=== PATIENT | female | born 1950 | race Caucasian/White ===

== ENCOUNTER 2016-06-25 09:01 | Outpatient (CLI) | payer MEDICARE, OTHER ==
[2016-06-25 12:23] LABS: #Eosinphils 0.2 thou/uL (0.0-0.7); #Monocytes 0.5 thou/uL (0.11-0.59); #Neutrophils 3.2 thou/uL (1.40-6.50); %Basophils 0.6 % (0.0-1.0); %Eosinophils 3.2 % (0.0-10.0); %Lymphocytes 34.1 % (21.0-51.0); %Monocytes 8.1 % (0.0-10.0); Hematocrit 44.9 % (36.0-47.0); Mean Platelet Volume 10.4 fL (7.4-10.4); Red Blood Cell (RBC) Count 4.96 mill/uL (4.20-5.40); White Blood Cell (WBC) Count 5.9 thou/uL (4.8-10.8)
[2016-06-25 12:52] LABS: ALT (SGPT) 14 U/L (0-55); AST (SGOT) 24 U/L (5-34); Alkaline Phosphatase 76 U/L (40-150); Anion Gap 16 mmol/L (10-20); BUN (Urea Nitrogen) 22 mg/dL (9.8-20.1); Bilirubin, Direct 0.2 mg/dL (0.1-0.3); Bilirubin, Total 0.7 mg/dL (0.2-1.2); Calc. Creatinine Clearance 0 mL/min (70-130); Calcium 9.6 mg/dL (7.8-10.44); Carbon Dioxide 26 mmol/L (23-31); Chloride 101 mmol/L (98-107); Estimated GFR-MDRD 61; LDL Cholesterol, Calculated 117 mg/dL; Protein, Total 7.6 g/dL (5.8-8.1)
[2016-06-25 12:55] LABS: Hemoglobin A1c 5.8 % (4.0-6.0)
== END 2016-06-25 09:02 ==
LOC: NAVSJIPCSP 09:01 → EDSTATUS 15:23
PROVIDERS: ATTEND Family Medicine
DX: E78.5 Hyperlipidemia, unspecified (principal); I10 Essential (primary) hypertension; Z79.899 Other long term (current) drug therapy
CPT/HCPCS: 36415; 80048; 80061; 80076; 83036; 84443; 85025

== ENCOUNTER 2018-09-17 04:21 | Emergency (ER) | payer MEDICARE, OTHER | END 2018-09-17 05:00 | disposition home or self-care (01) | LOC: NAV ERS 04:21 | DX: T78.40XA Allergy, unspecified, initial encounter (principal); E78.5 Hyperlipidemia, unspecified; Z79.899 Other long term (current) drug therapy | CPT/HCPCS: 99282 ==

== ENCOUNTER 2020-10-07 10:08 | Emergency (ER) | payer MEDICARE, OTHER | END 2020-10-07 11:27 | disposition home or self-care (01) | LOC: NAV ERS 10:08 | DX: J45.909 Unspecified asthma, uncomplicated (principal); J32.9 Chronic sinusitis, unspecified; E78.5 Hyperlipidemia, unspecified; I10 Essential (primary) hypertension; Z79.899 Other long term (current) drug therapy | CPT/HCPCS: 71046 ==

== ENCOUNTER 2021-10-13 16:49 | Emergency (ER) | payer MEDICARE, OTHER | END 2021-10-13 17:45 | disposition home or self-care (01) | LOC: NAV ERS 16:49 | DX: S00.06XA Insect bite (nonvenomous) of scalp, initial encounter (principal); R59.0 Localized enlarged lymph nodes; J06.9 Acute upper respiratory infection, unspecified; I10 Essential (primary) hypertension; Z79.899 Other long term (current) drug therapy; W57.XXXA Bitten or stung by nonvenomous insect and other nonvenomous arthropods, initial encounter | CPT/HCPCS: 99283 ==

== ENCOUNTER 2021-10-16 02:51 | Emergency (ER) | payer MEDICARE, OTHER ==
[2021-10-16] MEDS ORDERED: predniSONE 20 MG TAB ONE (03:29)
== END 2021-10-16 03:35 | disposition home or self-care (01) ==
LOC: NAV ERS 02:51
DX: L50.9 Urticaria, unspecified (principal); E78.5 Hyperlipidemia, unspecified; I10 Essential (primary) hypertension; Z79.899 Other long term (current) drug therapy
CPT/HCPCS: 99282; J7512

== ENCOUNTER 2021-10-17 22:06 | Emergency (ER) | payer MEDICARE, OTHER | END 2021-10-18 02:38 | disposition home or self-care (01) | LOC: NAV ERS 22:06 | DX: T78.3XXA Angioneurotic edema, initial encounter (principal); I10 Essential (primary) hypertension; Z79.899 Other long term (current) drug therapy; Z79.84 Long term (current) use of oral hypoglycemic drugs | CPT/HCPCS: 99283 ==

== ENCOUNTER 2021-10-19 00:49 | Emergency (ER) | payer MEDICARE, OTHER ==
[2021-10-19] MEDS ORDERED: methylPREDNISolone Sod Succ/PF 125 MG/2 ML VIAL ONE (01:31)
== END 2021-10-19 02:57 | disposition home or self-care (01) ==
LOC: NAV ERS 00:49
DX: T78.3XXA Angioneurotic edema, initial encounter (principal); E78.5 Hyperlipidemia, unspecified; I10 Essential (primary) hypertension; Z79.899 Other long term (current) drug therapy
CPT/HCPCS: 96372; 99283; J2930

== ENCOUNTER 2021-11-17 08:48 | Emergency (ER) | payer MEDICARE, OTHER | END 2021-11-17 10:13 | disposition home or self-care (01) | LOC: NAV ERS 08:48 | DX: I10 Essential (primary) hypertension (principal); L03.211 Cellulitis of face | CPT/HCPCS: 99283 ==

== ENCOUNTER 2022-01-12 14:10 | Emergency (ER) | payer MEDICARE, OTHER ==
[2022-01-12] MEDS ORDERED: Bicillin LA 1.2 MILLION UNITS/2 ML SYRINGE ONE (19:35)
== END 2022-01-12 15:40 | disposition home or self-care (01) ==
LOC: NAV ERS 14:10
DX: J20.9 Acute bronchitis, unspecified (principal); E78.00 Pure hypercholesterolemia, unspecified; E78.5 Hyperlipidemia, unspecified; I10 Essential (primary) hypertension; Z79.02 Long term (current) use of antithrombotics/antiplatelets
CPT/HCPCS: 71046; J0561

== ENCOUNTER → 2022-03-20 | Emergency (ER) | payer MEDICARE, OTHER ==
[2022-03-20 01:30] LABS: #Basophils 0.1 thou/uL (0.0-0.2); #Eosinphils 0.3 thou/uL (0.0-0.7); #Lymphocytes 2.3 thou/uL (1.20-3.40); #Monocytes 0.7 thou/uL (0.11-0.59); #Neutrophils 3.4 thou/uL (1.40-6.50); %Basophils 0.9 % (0.0-1.0); %Eosinophils 4.8 % (0.0-10.0); %Lymphocytes 33.7 % (21.0-51.0); %Monocytes 9.9 % (0.0-10.0); %Neutrophils 50.6 % (42.0-75.0); Hemoglobin 15.5 g/dL (12.0-16.0); Mean Corpuscular Hemoglobin 30.3 pg (27.0-31.0); Mean Platelet Volume 11.5 fL (7.4-10.4); Platelet Count 177 10x3/uL (130-400); RBC Distribution Width 11.8 % (11.5-14.5); Red Blood Cell (RBC) Count 5.12 mill/uL (4.20-5.40); White Blood Cell (WBC) Count 6.8 10x3/uL (4.8-10.8)
[2022-03-20 01:36] LABS: Bilirubin Negative (Negative); Blood, Urine Negative (Negative); Clarity Clear (Clear); Glucose, Urine (Dipstick) Negative (Negative); Ketone, Urine Negative (Negative); Leukocyte Negative (Negative); Nitrite Negative (Negative); Protein, Urine (Dipstick) Negative (Neg-Trace); Specific Gravity, Urine 1.015 (1.005-1.030); Urobilinogen 0.2 mg/dL (Less than 2)
[2022-03-20 01:38] LABS: Sodium 143 mmol/L (136-145)
[2022-03-20 01:41] LABS: Glucose 144 mg/dL (80-115)
[2022-03-20 01:45] LABS: ALT (SGPT) 14 U/L (8-55); AST (SGOT) 22 U/L (5-34); Albumin 4.4 g/dL (3.4-4.8); Alkaline Phosphatase 82 U/L (40-110); Anion Gap 15 mmol/L (10-20); BUN (Urea Nitrogen) 12 mg/dL (9.8-20.1); Bilirubin, Total 0.4 mg/dL (0.2-1.2); Calc. Creatinine Clearance 0 mL/min (70-130); Calcium 10.4 mg/dL (7.8-10.44); Carbon Dioxide 29 mmol/L (23-31); Chloride 103 mmol/L (98-107); Estimated GFR 77; Globulin 2.9 g/dL (2.4-3.5); Potassium 3.6 mmol/L (3.5-5.1); Protein, Total 7.3 g/dL (5.8-8.1)
[2022-03-20 16:49] LABS: Free T4 (Free Thyroxine) 1.11 ng/dL (0.70-1.48)
== END ==
LOC: NAV ERS 00:29
DX: I10 Essential (primary) hypertension (principal); E03.9 Hypothyroidism, unspecified; E78.00 Pure hypercholesterolemia, unspecified; Z79.899 Other long term (current) drug therapy
CPT/HCPCS: 36415; 80053; 81003; 84439; 84442; 84443; 84481; 85025; 99283

== ENCOUNTER 2023-09-10 13:21 | Emergency (ER) | payer MEDICARE, OTHER ==
[2023-09-10] MEDS ORDERED: Doxycycline 100 MG CAP ONE (14:30)
== END 2023-09-10 14:36 | disposition home or self-care (01) ==
LOC: NAV ERS 13:21
DX: S00.86XA Insect bite (nonvenomous) of other part of head, initial encounter (principal); L29.9 Pruritus, unspecified; I10 Essential (primary) hypertension; W57.XXXA Bitten or stung by nonvenomous insect and other nonvenomous arthropods, initial encounter
CPT/HCPCS: 99282